=== PATIENT | male | born 1990 | race American Indian/Alaskan Native ===

== ENCOUNTER 2019-12-10 22:14 | Emergency (ER) | payer SELFPAY ==
[2019-12-10] MEDS ORDERED: Triamcinolone Acetonide 40 MG/ML 1 ML MDV INJECT ONE (22:48)
--- NOTE | 2019-12-10 22:48 | EDM.PDOC ---
ED HPI GENERAL MEDICAL PROBLEM - General Chief Complaint: Skin Complaint Stated Complaint: DWIGHT ARMENDARIZ PER PT EVERYWHERE PER PT Time Seen by Provider: 12/10/19 22:47 Source of Information: Reports: Patient, RN, RN Notes Reviewed History Limitations: Reports: No Limitations - History of Present Illness INITIAL COMMENTS - FREE TEXT/NARRATIVE: Patient presents to ER with complaint of redness, itching, swelling, and drainage from the right arm as well as several areas on the body including the genitals, the face, the extremities upper and lower bilaterally. Patient states he was exposed to poison oak or poison sumac. Patient states this began a few days ago, he has been using [id number] medications and topical ointments, as well as using bleach baths. States that this has not been helping at all. Patient denies fever chills. Onset: Gradual Bilateral Arm Pain Score (Numeric/FACES): 2 - Related Data Allergies Allergy/AdvReac Type Severity Reaction Status Date / Time No Known Allergies Allergy Verified 12/10/19 22:41 Home Meds: Home Meds . [No Known Home Meds] 12/10/19 [History] Past Medical History - Past Health History Medical/Surgical History: Denies Medical/Surgical History Social & Family History - Tobacco Use Smoking Status *Q: Current Every Day Smoker Years of Tobacco use: 1 Packs/Tins Daily: 0.4 Second Hand Smoke Exposure: Yes - Recreational Drug Use Recreational Drug Use: No ED ROS GENERAL - Review of Systems Review Of Systems: Comprehensive ROS is negative, except as noted in HPI. ED EXAM, SKIN/RASH Exam: See Below Exam Limited By: No Limitations General Appearance: Alert, WD/WN, Moderate Distress Eye Exam: Bilateral Eye: EOMI, Normal Inspection Ears: Normal External Exam, Hearing Grossly Normal Nose: Normal Inspection Throat/Mouth: Normal Inspection, Normal Voice, No Airway Compromise Head: Atraumatic, Normocephalic Neck: Normal Inspection, Supple, Non-Tender, Full Range of Motion Respiratory/Chest: No Respiratory Distress, Lungs Clear, Normal Breath Sounds, No Accessory Muscle Use, Chest Non-Tender Cardiovascular: Normal Peripheral Pulses, Regular Rate, Rhythm, No Edema, No Gallop, No JVD, No Murmur, No Rub Peripheral Pulses: 2+: Radial (L), Radial (R) GI/Abdominal: Normal Bowel Sounds, Soft, Non-Tender (Male) Exam: Deferred Rectal (Males) Exam: Deferred Back Exam: Normal Inspection, Full Range of Motion, NT Extremities: Normal Range of Motion, Non-Tender, No Pedal Edema, Normal Capillary Refill, Arm Pain (right arm pain/erythema/cellulitis), Increased Warmth, Redness Neurological: Alert, Oriented, CN II-XII Intact, Normal Cognition, Normal Gait, Normal Reflexes, No Motor/Sensory Deficits Psychiatric: Normal Affect, Normal Mood Skin: Warm, Dry, Erythema (right arm/generalized), Other (right arm weeping clear yellow drainage) Location, Skin: Upper Extremity, Right Characteristics: Erythematous Associated features: Warmth, Tenderness, Swelling, Inflammation, Weeping Lymphatic: No Adenopathy Course - Vital Signs Last Recorded V/S: Last Vital Signs Temp 98.3 F 12/10/19 22:37 Pulse 82 12/10/19 22:37 Resp 18 12/10/19 22:37 BP 121/83 12/10/19 22:37 Pulse Ox 99 12/10/19 22:37 - Orders/Labs/Meds Meds: Medications Discontinued Medications Generic Name Dose Route Start Last Admin Trade Name Isacc PRN Reason Stop Dose Admin Cephalexin 500 mg 12/10/19 22:58 12/10/19 23:07 Keflex PO 12/10/19 22:59 500 mg ONETIME ONE Administration Triamcinolone Acetonide 40 mg 12/10/19 22:48 Kenalog-40 INJECT 12/10/19 22:49 ONETIME ONE Triamcinolone Acetonide 40 mg 12/10/19 23:06 12/10/19 23:08 Kenalog-40 IM 12/10/19 23:07 40 mg ONETIME ONE Administration Departure - Departure Time of Disposition: 23:23 Disposition: Home, Self-Care 01 Condition: Fair Clinical Impression: Contact dermatitis due to poison dwight Cellulitis Qualifiers: Site of cellulitis: extremity Site of cellulitis of extremity: upper extremity Laterality: right Qualified Code(s): L03.113 - Cellulitis of right upper limb - Discharge Information *PRESCRIPTION DRUG MONITORING PROGRAM REVIEWED*: No *COPY OF PRESCRIPTION DRUG MONITORING REPORT IN PATIENT LUIS: No Instructions: Poison Dwight Dermatitis, [id number], Cellulitis, Adult, [id number], Contact Dermatitis, [id number], Poison [place] Dermatitis, [id number] Referrals: PCP,None [Primary Care Provider] - Forms: ED Department Discharge Additional Instructions: Rx: Cephalexin Continue using Caladryl lotion, hydrocortisone cream [id number] as directed May continue using bleach baths, oatmeal baths Follow-up with your primary care provider if no improvement May use Tylenol and/or ibuprofen as directed for pain Sepsis Event Note (ED) - Evaluation Sepsis Screening Result: No Definite Risk - Focused Exam Vital Signs: Vital Signs Temp Pulse Resp BP Pulse Ox 12/10/19 22:37 98.3 F 82 18 121/83 99
[2019-12-10] MEDS ORDERED: Cephalexin 500 MG Cap PO ONE (22:58)
[2019-12-10] MEDS ORDERED: Triamcinolone Acetonide 40 MG/ML 1 ML MDV IM ONE (23:06)
== END 2019-12-10 23:26 | disposition home or self-care (01) ==
LOC: DL.ED 22:14
DX: L03.113 Cellulitis of right upper limb (principal); L23.7 Allergic contact dermatitis due to plants, except food; F17.210 Nicotine dependence, cigarettes, uncomplicated
CPT/HCPCS: 96372; 99283; A9270; J3301

== ENCOUNTER 2019-12-11 16:29 | Emergency (ER) | payer MEDICAID ==
[2019-12-11] MEDS ORDERED: methylPREDNISolone Sodium Succinate 125 MG/2 ML SDV IM ONE (16:58)
--- NOTE | 2019-12-11 17:05 | EDM.PDOC ---
ED HPI GENERAL MEDICAL PROBLEM - General Chief Complaint: Skin Complaint Stated Complaint: REACTION TO MEDICINE GIVEN FOR POISON OAK Time Seen by Provider: 12/11/19 16:45 Source of Information: Reports: Patient History Limitations: Reports: No Limitations - History of Present Illness INITIAL COMMENTS - FREE TEXT/NARRATIVE: This 29 yo male patient reports to the ED due to a rash on his arms, face and genitals. The patient reports he was exposed to poison nicolas or poison oak 4 days ago. The patient was seen in the ED yesterday and given an injection of steroids along with a script for Keflex. The patient reports he has noticed increased swelling and redness on his right upper arm since yesterday. Duration: Day(s):, Constant, Getting Worse Location: Reports: Face, Upper Extremity, Left, Upper Extremity, Right, Other Quality: Reports: Ache, Burning Severity: Moderate Improves with: Reports: None Worsens with: Reports: None Context: Reports: Other Associated Symptoms: Reports: No Other Symptoms Bilateral Arm Pain Score (Numeric/FACES): 3 - Related Data Allergies Allergy/AdvReac Type Severity Reaction Status Date / Time No Known Allergies Allergy Verified 12/11/19 16:41 Home Meds: Home Meds . [No Known Home Meds] 12/10/19 [History] Past Medical History - Past Health History Medical/Surgical History: Denies Medical/Surgical History Social & Family History - Tobacco Use Smoking Status *Q: Current Every Day Smoker Years of Tobacco use: 1 Packs/Tins Daily: 0.2 - Caffeine Use Caffeine Use: Reports: None - Recreational Drug Use Recreational Drug Use: No ED ROS GENERAL - Review of Systems Review Of Systems: Comprehensive ROS is negative, except as noted in HPI. ED EXAM, SKIN/RASH Exam: See Below Exam Limited By: No Limitations General Appearance: Alert, WD/WN, Moderate Distress Eye Exam: Bilateral Eye: EOMI, Normal Inspection, PERRL Ears: Normal Canal, Hearing Grossly Normal, Normal TMs, Other (right pinna erythema) Nose: Normal Inspection, Normal Mucosa, No Blood Throat/Mouth: Normal Teeth, Normal Gums, Normal Oropharynx, Normal Voice, No Airway Compromise, Inflammation (surrounding the lips) Head: Atraumatic, Normocephalic Neck: Normal Inspection, Supple, Non-Tender, Full Range of Motion Respiratory/Chest: No Respiratory Distress, Lungs Clear, Normal Breath Sounds, No Accessory Muscle Use, Chest Non-Tender Cardiovascular: Normal Peripheral Pulses, Regular Rate, Rhythm, No Edema, No Gallop, No JVD, No Murmur, No Rub GI/Abdominal: Normal Bowel Sounds, Soft, Non-Tender, No Organomegaly, No Distention, No Abnormal Bruit, No Mass (Male) Exam: Deferred Rectal (Males) Exam: Deferred Back Exam: Normal Inspection Extremities: Arm Pain (bilateral rash ) Neurological: Alert, Oriented, CN II-XII Intact, Normal Cognition, Normal Gait Psychiatric: Normal Affect, Normal Mood Skin: Erythema, Rash Location, Skin: Upper Extremity, Right, Upper Extremity, Left Characteristics: Vesicular, Erythematous Associated features: Warmth, Tenderness, Swelling Lymphatic: No Adenopathy Course - Vital Signs Last Recorded V/S: Last Vital Signs Temp 36.4 C 12/11/19 16:40 Pulse 93 12/11/19 16:40 Resp 18 12/11/19 16:40 BP 143/82 H 12/11/19 16:40 Pulse Ox 99 12/11/19 16:40 - Orders/Labs/Meds Meds: Medications Discontinued Medications Generic Name Dose Route Start Last Admin Trade Name Freq PRN Reason Stop Dose Admin Methylprednisolone Sodium Succinate 125 mg 12/11/19 16:58 12/11/19 17:04 Solu-Medrol IM 12/11/19 16:59 125 mg ONETIME ONE Administration Departure - Departure Time of Disposition: 17:01 Disposition: Home, Self-Care 01 Condition: Fair Clinical Impression: Contact dermatitis and eczema due to plant - Discharge Information *PRESCRIPTION DRUG MONITORING PROGRAM REVIEWED*: Not Applicable *COPY OF PRESCRIPTION DRUG MONITORING REPORT IN PATIENT LUIS: Not Applicable Instructions: Contact Dermatitis, [id number] Forms: ED Department Discharge Care Plan Goals: The patient was advised of the examination results. The patient was given an injection of SoluMedrol while in the ED and discharged with a script for Prednisone (20 mg) #10 to take 2 by mouth daily. The patient was encouraged to use kalamine lotion to help with temporary symptom management. If the patient has any additional symptoms or concerns, the patient should either return to the emergency department or visit his primary care facility. Sepsis Event Note (ED) - Evaluation Sepsis Screening Result: No Definite Risk - Focused Exam Vital Signs: Vital Signs Temp Pulse Resp BP Pulse Ox 12/11/19 16:40 36.4 C 93 18 143/82 H 99
== END 2019-12-11 17:19 | disposition home or self-care (01) ==
LOC: DL.ED 16:29
DX: L25.9 Unspecified contact dermatitis, unspecified cause (principal); L25.5 Unspecified contact dermatitis due to plants, except food; F17.210 Nicotine dependence, cigarettes, uncomplicated
CPT/HCPCS: 96372; 99283; J2930

== ENCOUNTER 2021-02-16 08:16 | Emergency (ER) | payer MEDICAID ==
--- NOTE | 2021-02-16 09:07 | EDM.PDOC ---
ED HPI GENERAL MEDICAL PROBLEM - General Chief Complaint: Skin Complaint Stated Complaint: LEFT ARM BITE, RED LINE GOING UP ARM Time Seen by Provider: 02/16/21 08:54 Source of Information: Reports: Patient, RN, RN Notes Reviewed History Limitations: Reports: No Limitations - History of Present Illness INITIAL COMMENTS - FREE TEXT/NARRATIVE: John is a 30 y/o male who presents to the ED via personal vehicle with complaints of spreading erythema from a bug bite would he sustained two days ago. The patient reports he did not see what insect bite his left forearm but notes the swelling and redness began to spread around the bite wound with the redness travelling proximally up his inner forearm extending into his inner upper arm. He denies fever, shaking chills, headache, vision changes, nausea, vomiting, or diarrhea. He has taken no medications or performed any supportive cares for his symptoms. - Related Data Allergies Allergy/AdvReac Type Severity Reaction Status Date / Time amoxicillin [From Augmentin] Allergy Airway Verified 02/16/21 08:34 Tightness clavulanic acid Allergy Airway Verified 02/16/21 08:34 [From Augmentin] Tightness erythromycin base Allergy Cannot Verified 02/16/21 08:34 Remember Home Meds: Home Meds . [No Known Home Meds] 12/10/19 [History] Past Medical History - Past Health History Medical/Surgical History: Denies Medical/Surgical History HEENT History: Reports: Impaired Vision Cardiovascular History: Reports: None Respiratory History: Reports: None Gastrointestinal History: Reports: None Genitourinary History: Reports: None Musculoskeletal History: Reports: None Neurological History: Reports: None Psychiatric History: Reports: None Endocrine/Metabolic History: Reports: None Hematologic History: Reports: None Immunologic History: Reports: None Oncologic (Cancer) History: Reports: None Dermatologic History: Reports: None - Infectious Disease History Infectious Disease History: Reports: None - Past Surgical History Head Surgeries/Procedures: Reports: None Social & Family History - Family History Family Medical History: Unobtainable - Tobacco Use Tobacco Use Status *Q: Never Tobacco User - Caffeine Use Caffeine Use: Reports: Coffee - Recreational Drug Use Recreational Drug Use: No ED ROS GENERAL - Review of Systems Review Of Systems: Comprehensive ROS is negative, except as noted in HPI. ED EXAM, SKIN/RASH Exam: See Below Exam Limited By: No Limitations General Appearance: Alert, No Apparent Distress Eye Exam: Bilateral Eye: EOMI, Normal Inspection, PERRL (3mm) Ears: Normal External Exam, Hearing Grossly Normal Nose: Normal Inspection, Normal Mucosa, No Blood Throat/Mouth: Normal Inspection, Normal Oropharynx, Normal Voice, No Airway Compromise Head: Atraumatic, Normocephalic Neck: Normal Inspection, Supple, Non-Tender, Full Range of Motion Respiratory/Chest: No Respiratory Distress, Lungs Clear, Normal Breath Sounds, No Accessory Muscle Use, Chest Non-Tender Cardiovascular: Normal Peripheral Pulses, Regular Rate, Rhythm, No Edema, No Gallop, No JVD, No Murmur, No Rub Peripheral Pulses: 2+: Radial (L), Radial (R) GI/Abdominal: Normal Bowel Sounds, Soft, Non-Tender (Male) Exam: Deferred Rectal (Males) Exam: Deferred Extremities: Arm Pain (To wound on left forearm), Increased Warmth (Surrounding wound on left forearm), Redness (Surrounding wound on left forearm, extending proximally in a line into left upper arm) Neurological: Alert, Oriented, CN II-XII Intact, Normal Cognition, Normal Gait, No Motor/Sensory Deficits, Sensory/Motor Deficit Psychiatric: Normal Affect Skin: Warm, Dry, Erythema (See above), Increased Warmth (See above), Wound/Incision (Pinpoint bite wound to left forearm with serous crust noted). No: Ecchymosis, Jaundice, Mottled, Pallor, Petechiae Location, Skin: Upper Extremity, Left Characteristics: Linear Associated features: Warmth, Tenderness, Swelling, Inflammation, Crusting Lymphatic: No Adenopathy Course - Vital Signs Last Recorded V/S: Last Vital Signs Temp 97.8 F 02/16/21 08:35 Pulse 77 02/16/21 08:35 Resp 18 02/16/21 08:35 BP 134/101 H 02/16/21 08:35 Pulse Ox 97 02/16/21 08:35 - Orders/Labs/Meds Labs: Laboratory Tests 02/16/21 02/16/21 02/16/21 Range/Units 08:46 08:46 08:46 WBC 8.7 (5.0-10.0) 10^3/uL RBC 5.65 (4.6-6.2) 10^6/uL Hgb 17.0 (14.0-18.0) g/dL Hct 49.2 (40.0-54.0) % MCV 87.1 (80-100) fL MCH 30.1 (27.0-34.0) pg MCHC 34.6 (33.0-35.0) g/dL Plt Count 236 (150-450) 10^3/uL Neut % (Auto) 50.7 (42.2-75.2) % Lymph % (Auto) 31.8 (20.5-50.1) % Maverick % (Auto) 12.6 H (2-8) % Eos % (Auto) 4.7 H (1.0-3.0) % Baso % (Auto) 0.2 (0.0-1.0) % Lactic Acid 1.6 (0.4-2.0) mmol/L C-Reactive Protein < 0.2 (0.0-0.9) mg/dL Meds: Medications Discontinued Medications Generic Name Dose Route Start Last Admin Trade Name Freq PRN Reason Stop Dose Admin Hydrocortisone 1 gm 02/16/21 09:58 02/16/21 10:15 Hydrocortisone 1% Crm 30 Gm Tube TOP 02/16/21 09:59 1 gm ONETIME ONE Administration Vancomycin HCl 1,750 gm/ 250 mls @ 167 mls/hr 02/16/21 08:52 02/16/21 10:15 Sodium Chloride IV 02/16/21 10:21 167 mls/hr ONETIME ONE Administration Vancomycin HCl Confirm 02/16/21 08:58 02/16/21 10:45 Vancomycin 1 Gm Sdv Administered 02/16/21 08:59 Not Given Dose 1 gm .ROUTE .STK-MED ONE Vancomycin HCl Confirm 02/16/21 08:58 02/16/21 10:46 Vancomycin 750 Mg Sdv Administered 02/16/21 08:59 Not Given Dose 750 mg .ROUTE .STK-MED ONE - Re-Assessments/Exams Free Text/Narrative Re-Assessment/Exam: 02/16/21 Blood cultures drawn with labs. Vancomycin IVPB administered. Findings of examination and lab work reviewed with patient. Will treat cellulitis with clindamycin and doxycycline. Patient instructed to follow up with his PCP regarding today's visit. Supportive cares as well as red flag signs and symptoms which would warrant reevaluation reviewed. Patient verbalized understanding and agreement with the plan of care. Departure - Departure Time of Disposition: 10:40 Disposition: Home, Self-Care 01 Condition: Fair Clinical Impression: Cellulitis of forearm, left Insect bite Qualifiers: Encounter type: initial encounter Site of insect bite: forearm Laterality: left Qualified Code(s): S50.862A - Insect bite (nonvenomous) of left forearm, initial encounter - Discharge Information *PRESCRIPTION DRUG MONITORING PROGRAM REVIEWED*: Not Applicable *COPY OF PRESCRIPTION DRUG MONITORING REPORT IN PATIENT LUIS: Not Applicable Instructions: Cellulitis, Adult, Insect Bite, Adult Forms: ED Department Discharge Additional Instructions: Rx: clindamycin Rx: doxycycline 1.) Take all of your antibiotic until gone, even as symptoms improve. 2.) You may take Benadryl 25mg, twice a day, should itching persist. 3.) You may take ibuprofen (Motrin/Advil) 400-800mg every six hours, as pain and swelling persist. You may also take acetaminophen (Tylenol) 650-1000mg every six hours, as pain persists. You may stagger these medications so you are taking a dose every three hours. 4.) Return to the emergency department should symptoms persist or worsen despite medication. 5.) Follow up with your primary care provider following antibiotic course.
[2021-02-16] MEDS: VANCOMYCIN IV ONE (10:15)
[2021-02-16] MEDS: Hydrocortisone 1% Crm 30 GM Tube TOP ONE (10:15)
[2021-02-16] MEDS: SODIUM CHLORIDE 0.9% IV ONE (10:15)
[2021-02-16] MEDS: Vancomycin 1 GM SDV ONE (10:45)
[2021-02-16] MEDS: Vancomycin 750 MG SDV ONE (10:46)
== END 2021-02-16 10:55 | disposition home or self-care (01) ==
LOC: DL.ED 08:16
DX: S50.862A Insect bite (nonvenomous) of left forearm, initial encounter (principal); L03.114 Cellulitis of left upper limb; Z88.0 Allergy status to penicillin; Z88.8 Allergy status to other drugs, medicaments and biological substances
CPT/HCPCS: 36415; 83605; 85025; 86140; 87040; 96365; 96366; 99283; A9270; J3370; J7050

== ENCOUNTER 2021-07-31 09:05 | Emergency (ER) | payer MEDICAID ==
[2021-07-31 10:16] LABS: ANION GAP 14.9 mEq/L (7-13); CHLORIDE,CL 103 mmol/L (98-107); SODIUM,NA 139 mmol/L (136-145)
== END 2021-07-31 13:48 | disposition home or self-care (01) ==
LOC: DL.ED 09:05
DX: U09.9 Post COVID-19 condition, unspecified (principal); R07.89 Other chest pain; Z88.1 Allergy status to other antibiotic agents
CPT/HCPCS: 36415; 71045; 80053; 82150; 83690; 84484; 85025; 85379; 93005; 99285-25

== ENCOUNTER 2022-03-08 17:30 | Emergency (ER) | payer MEDICAID | END 2022-03-08 18:25 | disposition home or self-care (01) | LOC: DL.ED 17:30 | DX: S01.01XA Laceration without foreign body of scalp, initial encounter (principal); R25.2 Cramp and spasm; W22.8XXA Striking against or struck by other objects, initial encounter | CPT/HCPCS: 12001; 99282 ==